=== PATIENT | male | born 1970 | race African-American/Black ===

== ENCOUNTER 2023-11-24 17:24 | Emergency (ER) | payer OTHER, SELFPAY ==
[2023-11-24] VITALS (16 sets, daily range): BP systolic 132–176; BP diastolic 72–100; PULSE 80–112; RESP 14–29; TEMP 36.3; O2SAT 93–100
--- NOTE | ~2023-11-24 | XR_ITS ---
EXAMINATION: XR chest 2V Exam Date/Time: 11/24/2023 18:10 CDT HISTORY: dizziness, body aches Comparison: None. RESULT: Lines, tubes, and devices: None. Lungs and pleura: Streaky subsegmental posterior lower lung opacities best seen in the lateral view, possibly localizing to the left lower lobe. Cardiomediastinal silhouette: Stable. Other: No acute osseous or upper abdominal finding. IMPRESSION: Subsegmental left lower lobe atelectasis/consolidation. Reviewed, dictated and finalized at location K.
--- NOTE | 2023-11-24 17:59 | ECG_ITS ---
Test Date: 2023-11-24 18:02:01 Measurements Intervals [place] Rate: 99 P: 41 GA: 176 QRS: -17 QRSD: 87 T: 73 QT: 313 QTc: 402 Interpretive Statements SINUS RHYTHM DELAYED PRECORDIAL R/S TRANSITION LEFT VENTRICULAR HYPERTROPHY WITH ST-T CHANGE BASELINE ARTIFACT- I, II, AVR, AVL BORDERLINE ECG No previous ECG available for comparison Electronically Signed On 11-24-2023 20:29:45 CDT by Al Delgadillo D.O.
[2023-11-24 18:15] LABS: Basophils Percent Auto 0.3 % (0.2-1.2); Eosinophils Absolute Auto 0.1 K/mm3 (0-0.3); Eosinophils Percent Auto 0.5 % (0-4.4); Hematocrit 42.1 % (42.0-52.0); Hemoglobin 13.9 g/dL (14.0-18.0); Immature Granulocyte Absolute 0.03 K/mm3 (0.00-0.031); Immature Granulocyte Percent A 0.3 % (0-0.5); Lymphocytes Absolute Auto 1.36 K/mm3 (0.9-3.2); Lymphocytes Percent Auto 14.6 % (18.3-44.2); Mean Corpuscular Hemoglobin 29.7 pg (26-34); Mean Platelet Volume 8.7 fl (7.4-10.4); Monocytes Absolute Auto 0.6 K/mm3 (0.1-0.6); Monocytes Percent Auto 6.1 % (2.6-8.5); Neutrophils Absolute Auto 7.3 K/mm3 (1.3-6.7); Neutrophils Percent Auto 78.2 % (45.5-73.1); Platelet Count Result 257 k/mm3 (150-375); Red Blood Count 4.68 M/mm3 (4.6-6.20); Red Cell Distribution Width 13.2 % (11.5-14.5); White Blood Count 9.3 K/mm3 (4.5-10.0)
[2023-11-24 18:41] LABS: Alanine Aminotransferase 30 U/L (6-50); Albumin Level 3.9 g/dL (3.5-5.1); Alkaline Phosphatase 111 U/L (38-126); Anion Gap 8 mmol/L (4-12); Aspartate Amino Transferase 39 U/L (17-59); Bilirubin,Total 0.9 mg/dL (0.2-1.3); Blood Urea Nitrogen 22 mg/dL (9-20); Calcium 9.3 mg/dL (8.4-10.2); Carbon Dioxide 26 mmol/L (22-30); Chloride 101 mmol/L (98-107); Estimated CRCL calculation 123 ml/min; Estimated Glomerular Filt Rate > 60; Glucose 93 mg/dL (65-110); Potassium 4.1 mmol/L (3.4-5.0); Sodium 135 mmol/L (137-145)
--- NOTE | 2023-11-24 18:44 | ED.DIZZY ---
HPI - Dizziness General Chief Complaint: Dizziness Stated Complaint: dizziness and generalized body aches Time Seen by Provider: 11/24/23 18:04 Source: patient Mode of arrival: ambulatory Limitations: no limitations History of Present Illness HPI Narrative: This is a 53-year-old male that presents to the emergency department for dizziness. 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 He felt as though he was getting overheated. He has been very lightheaded. Reports feeling short of breath earlier. Reports cough, myalgias. Denies chest pain, focal numbness or weakness. Related Data Allergies Allergy/AdvReac Type Severity Reaction Status Date / Time No Known Allergies Allergy Verified 11/24/23 18:06 Review of Systems Review of Systems: CONSTITUTIONAL: Denies fever CARDIOVASCULAR: Denies chest pain, or edema. RESPIRATORY: Reports dyspnea. All systems reviewed & are unremarkable except as noted in HPI and below PMFSH Past Medical History Medical History (Updated 11/24/23 @ 21:05 by Rachelle Nieto PA-C) History of gout History of hypertension Social History Social History (Updated 11/24/23 @ 18:47 by Rachelle Nieto PA-C) Smoking status: Never smoker Exam Narrative: GENERAL: Well-appearing, well-nourished, and in no acute distress. HEAD: Normocephalic, atraumatic. EYES: EOMI. ENT: Nares clear, no rhinorrhea or epistaxis. Mucous membranes moist. Oropharynx without tonsillar hypertrophy exudate or other lesions. NECK: Supple. No JVD CHEST: Clear to auscultation. No respiratory distress. No wheezes rales or rhonchi HEART: Regular rate and rhythm. No murmur heard. Normal peripheral pulses. EXTREMITIES: Normal range of motion. No edema. SKIN: Warm, dry, no rash. NEURO: No focal deficits. Alert and oriented x3. PSYCH: Normal mood and affect Course Course Emergency Course: Patient updated on his workup and agrees with plan of care Vital Signs Vital signs: Vital Signs Temperature 97.4 F L 11/24/23 17:29 Pulse Rate 112 H 11/24/23 17:29 Respiratory Rate 20 11/24/23 17:29 Blood Pressure 176/90 H 11/24/23 17:29 Pulse Oximetry 97 11/24/23 17:29 Oxygen Delivery Room Air 11/24/23 17:29 Temperature 97.4 F L 11/24/23 17:29 Pulse Rate 80 11/24/23 19:48 Respiratory Rate 14 11/24/23 19:45 Blood Pressure 152/95 H 11/24/23 18:32 Pulse Oximetry 100 11/24/23 19:30 Oxygen Delivery Room Air 11/24/23 17:29 MDM - Dizziness MDM Narrative Medical decision making narrative: patient presents to the emergency department for cough, myalgias, lightheadedness. He is afebrile and nontoxic appearing. Tachycardic upon arrival, this normalized with IV fluids. Cbc without leukocytosis. Metabolic panel some evidence of dehydration. Urine also with evidence of dehydration. Patient hydrated with a L of IV fluids in the ED. Influenza, RSV and COVID screens are negative. Chest x-ray shows possible pneumonia. Patient updated on his workup and agrees with plan of care. Will discharge on oral antibiotics for community-acquired pneumonia. He is to follow up with primary provider. He was given warnings to return to the ER Differential Diagnosis Differential diagnosis: Likely other ( Dehydration, electrolyte derangement, pneumonia, viral infection) Lab Data Attestation: I reviewed the patient's lab results. 11/24/23 18:07 11/24/23 18:07 Labs: Lab Results 11/24/23 11/24/23 11/24/23 Range/Units 18:07 18:10 18:52 WBC 9.3 (4.5-10.0) K/mm3 RBC 4.68 (4.6-6.20) M/mm3 Hgb 13.9 L (14.0-18.0) g/dL Hct 42.1 (42.0-52.0) % MCV 90.0 (80-100) fl MCH 29.7 (26-34) pg MCHC 33.0 (32-36) g/dl RDW 13.2 (11.5-14.5) % Plt Count 257 (150-375) k/mm3 MPV 8.7 (7.4-10.4) fl Immature Gran % (Auto) 0.3 (0-0.5) % Neut % (Auto) 78.2 H (45.5-73.1) % Lymph % (Auto) 14.6 L (18.3-44.2) % [place] % (Auto) 6
[2023-11-24 18:51] LABS: Influenza A QL RT-PCR Negative (Negative); Influenza B QL RT-PCR Negative (Negative); RSV RNA, RT-PCR Negative (Negative); SARS-CoV-2 RNA PCR Negative (Negative)
[2023-11-24] MEDS: SODIUM CHLORIDE 0.9% IV 1,000 ML 999 ML IV CONT (18:57)
[2023-11-24 19:00] LABS: Creatine Kinase 222 U/L (55-170)
[2023-11-24 19:02] LABS: Add Urine Microscopic? YES; Appearance Urine Clear (Clear); Bacteria Urine None Seen /hpf; Bilirubin Urine Negative (Negative); Blood Urine Negative (Negative); Color Urine Dark Yellow (Yellow); Glucose Urine UA Negative (Negative); Ketones Urine Trace mg/dL (Negative); Leukocyte Esterase Ur Negative LEU/UL (Negative); Nitrate Urine Negative (Negative); Non Pathogenic Casts 0-2; Protein Urine 1+ mg/dL (Negative); RBC Urine 0-2 /hpf (0-2); Specific Grav Ur 1.032 (1.001-1.035); Squamous Epithelial Cell Urine None Seen /hpf (Few); WBC Urine 0-5 /hpf (0-3); pH Urine 5.5 (5.0-9.0)
== END 2023-11-24 21:20 | disposition home or self-care (01) ==
PROVIDERS: Emergency Medicine; Emergency Provider Physician Assistant
DX: J18.9 Pneumonia, unspecified organism (principal); E86.0 Dehydration; Z20.822 Contact with and (suspected) exposure to COVID-19; I10 Essential (primary) hypertension; M10.9 Gout, unspecified
CPT/HCPCS: 36415; 71046; 80053; 81001; 82550; 85025; 87637; 93005; 96360; 96361; 99283; J7030

== ENCOUNTER 2024-05-20 15:39 | Emergency (ER) | payer OTHER, SELFPAY ==
--- OUTSIDE RECORDS SUMMARY | 2024-05-20 15:42 | XMS_ITS | Data Portability ---
Author Organization [facility] Roe Montalvo Address [address] [place] [address] Care Team Providers Care Nitrocellulose Maker Name Role Phone MAULIK MCCRAYR Primary Care Provider [phone] Assessment No assessment recorded. Plan of Treatment Reminders Order Date Submit Date Provider Last Modified By Organization Details Last Modified Time Details Appointments None recorded. Lab None recorded. Referral None recorded. Procedures None recorded. Surgeries None recorded. Imaging None recorded. Medication Orders omeprazole 20 mg capsule,del ayed release 2023 [facility]acy #[id number], [address] [place], [address], 4 14:01:18 Viagra 100 mg tablet 2023 [facility], [address] [place] [address], [id number], 5 16:18:34 pantoprazol e 40 mg tablet,raymond yed release 2023 [facility] #6830, [address] [place], [address], 4 14:00:55 famotidine 40 mg tablet 2023 [facility] #6830, [address] [place], [address], 4 18:45:53 acetaminoph en 300 mg-codeine 30 mg tablet 2023 024 [facility]/Pharmacy #[id number], [address] [place], [address], 13:16:42 Patient TargetsNo targets recorded. Patient Instructions Encounter Date Encounter Id Patient Instructions Last Modified By Organization Details Last Modified Time 08/06/2023 [id number] learning about h igh blood pressure [email or web address] Not available 08/06/2023 21:09:27 I will release t o to work. Do stretching exercises for your back. Limit bending and lifting if possible. Use your legs to lift. Weight loss will be helpful. Follow up with the Specialist. Take all of your medications as directed. If you have a problem with them, let us know. Keep adequate fluid intake. Keep comfortable. Spring is here. This one is a wet one so far. So this one is close to normal. Changes in the body temperature lower the immune system & can result in infection. Try to keep your body temperature the same. Follow the [facility] [place] [facility]. RETURN IN 1 MONTH. Not available 08/06/2023 21:13:50 Let us know if y ou can't do your job. 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 Report any problems with them to us. Keep adequate fluid intake. Spring is here . Do stretching exercises for your back. Limit bending and lifting if possible. Use your legs to lift. Weight loss will be helpful. It is finally warming up. Don't get behind on your fluids. This Spring is wetter than usual. Try to keep the body temperature constant. Decrease red meat. (Pork & beef). Increase vegetables & fruits. Please add exercise if you can. Get a little sunlight daily even if it's in your house. Vitamin D Deficiency is caused by our lack of sunlight. Not because of a poor diet. Let the shades up and let the sun shine in on you. Use the 5 [place]. Follow up in 1 month. [email or web address] Not available 08/18/2023 22:04:10 If you are uncomfortable with the chiropractor, then we may have to use physical therapy and that is if you can get the time from your job to do so. Think about it and let me know what you want to do. I can give you intermittent time off time for your gout. [email or web address] Not available 08/18/2023 22:03:19 10/27/2023 [id number] gastroesophageal reflux disease (GERD): care instructions [email or web address] Not available 10/27/2023 18:45:50 learning about h igh blood pressure [email or web address] Not available 10/27/2023 18:45:50 Take all of your medications as directed. If you have a problem with them, let us know. Keep adequate fluid intake. Keep comfortable. Summer is trying to leave, but it is still hot. Changes in the body temperature lower the immune system & can result in infection. Try to keep your body temperature the same. Gargle with baking soda and warm water twice a day for congestion and prevention of respiratory infections. Follow the 5 [place] [facility]. Follow up in 1 month. [email or web address] Not available 10/28/2023 00:55:50 We discuss the education of the problems, the possible causes of these problems and possible treatments that we can offer. The side effects of the medications prescribed are discussed. Support and counseling given. Our primary goal, is to help you. Let's work together to get a better outcome. I discussed the 5 [place] [facility]. [email or web address] Not available 10/28/2023 00:56:01 11/30/2023 [id number] gout: care instructions Not available 11/30/2023 22:09:41 sleep apnea: car e instructions Not available 11/30/2023 22:09:41 learning about h igh blood pressure [email or web address] Not available 11/30/2023 14:01:14 Take all of your medications as directed. If you have a problem with them, let us know. Keep adequate fluid intake. Keep comfortable. Fall is here. Be prepared for the change. Changes in the body temperature lower the immune system & can result in infection. Try to keep your body temperature the same. Gargle with baking soda and warm water twice a day for congestion and prevention of respiratory infections. Follow the 5 [place] [facility]. Follow up in 1 month. [email or web address] Not available 11/30/2023 22:10:00 We discuss the education of the problems, the possible causes of these problems and possible treatments that we can offer. The side effects of the medications prescribed are discussed. Support and counseling given. Our primary goal, is to help you. Let's work together to get a better outcome. I discussed the 5 [place] [facility]. 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 Take your medications as directed. If you have a problem with them, let me know. Keep warm. Decrease red meat. Red meat increases inflammation and pain. Increase vegetables & fruits. They decrease inflammation & pain. Keep exercising. Take one day at a time. [email or web address] Not available 04/02/2024 14:26:34 We discuss the t he problems, the possible causes of these problems and possible treatments that we can offer. The possible side effects of the medications prescribed are discussed. Support and counseling given. Our primary goal, is to help you. Let's work together to get a better outcome. We can do it together. I discussed the 5 [place] [facility]. [email or web address] Not available 04/02/2024 14:26:52 Reason for Referral None Reported. Results Created Date Observation Date Name Description Value Unit Range Abnormal Flag Note LastModifiedBy Organization Detail LastModifiedTime 01/09/20 24 01/09/2024 COLOG UARD cologuard result Cancel led - Order d not applic able Not Available [facility] (Cologuard Orders Only) [address], [place], [address], 01/09/2024 08:30:57 Result Notes None recorded. Problems Name Problem SNOMED Code Status Onset Date Resolution Date Notes Provider Name and Address Organization Details Recorded Time Obstructi ve sleep apnea syndrome 02670022 Active 2017 ---Synced [facility] Not Available [facility]! 17:47:59 Injury of back 535149995 Active 2023 Maulik Mccrary MD Attn: Accounting ,[address] [place], [address] , [facility] - [facility] 4 13:40:16 Body mass index 40+ - severely obese 739782225 Active 2023 Maulik Mccrary MD Attn: Accounting ,[address] [place], [address] , [place] [facility] 4 13:40:23 Neck sprain 559470396 Active 2023 Maulik Mccrary MD Attn: Accounting ,[address] [place], [address] , [place] [facility] 4 13:40:28 Injury of head 05169157 Active 2023 Maulik Mccrary MD Attn: Accounting ,[address] [place], [address] , [place] [facility] 4 13:40:32 Posttraum atic headache 05019519 Active 2023 Maulik Mccrary MD Attn: Accounting ,[address] [place], [address] , [place] [facility] 06/11/202 4 13:15:03 Low back strain 275379753 Active 2023 Maulik Mccrary MD Attn: Accounting ,[address] , [place], [address] , [facility] - [facility] 4 13:15:45 Essential hypertens ion 50793682 Active 2014 ---[facility]ced [facility] Not Available [facility]! 4 17:47:59 Obesity 370849671 Active 2014 ---[facility]ced with [facility] Not Available [facility] 4 17:48:00 Osteoarth ritis 785430666 Active 2014 ---[facility]ced with [facility] Not Available [facility]! 4 17:47:58 Hyperchol esterolem ia 47431966 Active 2014 ---[facility]ced [facility] Not Available [facility] 4 17:48:01 Gout 79342623 Active 2014 ---[facility]ced [facility] Not Available [facility] 4 17:48:00 Sinusitis 31608432 Active 2015 ---[facility]ced with [facility] Not Available [facility]! 4 17:47:58 Problem Notes None recorded. Medical Equipment None Reported. Allergies No known drug allergies Medications Name Sig Start Date Stop Date Status Note LastModified by Organization Details LastModified Time Prescriptio n - Prior Authorizati on Request 01/31 completed Not Available Not Available Not Available cyclobenzap rine 10 mg tablet TAKE 1 TABLET BY MOUTH 3 TIMES A DAY NEEDED active Not Available Not Available No t Available azithromyci n 250 mg tablet TAKE 2 TABLETS BY MOUTH TODAY, THEN TAKE 1 TABLET DAILY FOR 4 DAYS DIRECTED active Not Available Not Available No t Available pravastatin 40 mg tablet TAKE 1 TABLET BY MOUTH EVERY DAY 2024 active Not Available Not Available Not Avai lable benzonatate 200 mg capsule TAKE 1 CAPSULE BY MOUTH 3 TIMES A DAY active Not Available Not Available No t Available promethazin e 6.25 mg/5 mL oral syrup Take 10 mL( 2 teaspoonf ul) by mouth every 6 hours as needed 01/31 completed Not Available Not Available Not Available famotidine 40 mg tablet Take 1 tablet every day by oral route. active Not Available Not Available No t Available prednisone 20 mg tablet Take 1 tablet twice a day by oral route. 2021 active Not Available Not Available Not Avai lable acetaminoph en 300 mg-codeine 30 mg tablet TAKE 1 TABLET BY MOUTH EVERY 6 HOURS active Not Available Not Available No t Available amlodipine 5 mg tablet TAKE 1 TABLET BY MOUTH EVERY DAY 2023 active Not Available Not Available Not Avai lable sildenafil 100 mg tablet -TAKE 1 TABLET BY MOUTH 30-60 MINUTES PRIOR TO SEXUAL ACTIVITY. DO NOT TAKE MORE THAN 1 TABLET IN ANY 24-HOUR PERIOD- active Not Available Not Available No t Available amoxicillin 500 mg tablet TAKE 2 TABLETS (1000 MG) ORALLY EVERY 8 HOURS FOR 5 DAYS active Not Available Not Available No t Available amoxicillin 875 mg tablet TAKE 1 TABLET BY MOUTH EVERY 12 HOURS active Not Available Not Available No t Available meclizine 25 mg tablet Take one tablet twice a day as needed for dizziness 2022 active Not Available Not Available Not Avai lable benzonatate 100 mg capsule TAKE 1 CAPSULE BY MOUTH EVERY 8 HOURS NEEDED 12/21 completed Not Available Not Available Not Available pantoprazol e 40 mg tablet,raymond yed release 11/29 completed Not Available Not Available Not Available buspirone 10 mg tablet TAKE 1 TABLET BY MOUTH TWICE A DAY active Not Available Not Available No t Available polymyxin B sulfate 10,000 unit-trimet hoprim 1 mg/mL eye drops 08/14 completed Not Available Not Available Not Available telmisartan 80 mg-hydrochl orothiazide 12.5 mg tablet TAKE 1 TABLET BY MOUTH EVERY DAY active Not Available Not Available No t Available omeprazole 20 mg capsule,del ayed release TAKE 1 CAPSULE BY MOUTH EVERY DAY FOR REFLUX active Not Available Not Available No t Available allopurinol 300 mg tablet TAKE 1 TABLET BY MOUTH EVERY DAY 2024 active Not Available Not Available Not Avai lable ergocalcife rol (vitamin D2) 1,250 mcg (50,000 unit) capsule One capsule every week for a low vitamin D active Not Available Not Available No t Available ibuprofen 600 mg tablet TAKE 1 TABLET BY MOUTH 3 TIMES A DAY WITH FOOD NEEDED FOR PAIN 2024 active Not Available Not Available Not Avai lable albuterol sulfate HFA 90 mcg/actuati on aerosol inhaler TAKE 2 PUFFS BY MOUTH EVERY 4 HOURS NEEDED active Not Available Not Available No t Available Naprosyn 500 mg tablet Take 1 tablet twice a day by oral route. 10/08 completed Not Available Not Available Not Available fluticasone propionate 50 mcg/actuati on nasal spray,suspe nsion SPRAY 2 SPRAYS INTO EACH NOSTRIL EVERY DAY 2021 active Not Available Not Available Not Avai lable loratadine 10 mg tablet TAKE 1 TABLET BY MOUTH EVERY DAY FOR ALLERGIES 2021 active Not Available Not Available Not Avai lable amoxicillin 875 mg-potassiu m clavulanate 125 mg tablet TAKE 1 TABLET BY MOUTH TWICE A DAY FOR 7 DAYS active Not Available Not Available No t Available azithromyci n 500 mg tablet TAKE 1 TABLET BY MOUTH EVERY DAY FOR 3 DAYS active Not Available Not Available No t Available moxifloxaci n 0.5 % eye drops 08/14 completed Not Available Not Available Not Available losartan 100 mg-hydrochl orothiazide 12.5 mg tablet TAKE 1 TABLET BY MOUTH EVERY DAY 01/31 completed Not Available Not Available Not Available Vitals Date Recorded Body height Body mass index (BMI) Body weight Heart rate Systolic blood pressure Diastolic blood pressure Provider Name and Address Organization Details Last Updated DateTime 4 180.34 cm 50.5 kg/m2 569426. 44 g 60 /min 144 mm[Hg] 83 mm[Hg] JOSSUE Rodriguez - [facility] 4 14:17:41 Date Recorded Body height Body mass index (BMI) Body weight Heart rate Respiratory rate Systolic blood pressure Diastolic blood pressure Provider Name and Address Organization Details Last Updated DateTime 4 180.34 cm 50.8 kg/m2 279776. 42 g 79 /min 18 /min 119 mm[Hg] 80 mm[Hg] Cyndy Dhaliwal [place] - [facility] 4 11:41:21 Date Recorded Body height Body mass index (BMI) Body weight Systolic blood pressure Diastolic blood pressure Provider Name and Address Organization Details Last Updated DateTime 10/27/2023 180.34 cm 50.8 kg/m2 901022.6 2 g 119 mm[Hg] 80 mm[Hg] Cyndy Dhaliwal MA [facility] 4 15:19:17 Date Recorded Body height Body mass index (BMI) Body weight Heart rate Systolic blood pressure Diastolic blood pressure Provider Name and Address Organization Details Last Updated DateTime 180.34 cm 48.5 kg/m2 054486. 74 g 77 /min 124 mm[Hg] 73 mm[Hg] Cyndy Dhaliwal MA [facility] 4 11:50:53 Date Recorded Body height Provider Name an d Address Organization Details Last Updated DateTime 04/01/2024 180.34 cm Cyndy Dhaliwal MA [facility] 04/01/19 25 10:08:50 Social History Question Answer Notes LastModified by Organizat ion Details LastModified Time Tobacco Smoking Status Never Smoker Rhona Headley LPN [facility], [facility] 12/21/2020 15:13:04 What Is Your Level Of Alcohol Consumption? None Information not available 01/09/2023 What Is Your Level Of Caffeine Consumption? None Information not available 01/09/2023 What Was The Date Of Your Most Recent Tobacco Screening? 04/01/2024 Information not available 04/01/2024 Do You Use Any Illicit Or Recreational Drugs? No Information not available 01/09/2023 Has Tobacco Cessation Counseling Been Provided? No Information not available 12/23/2021 Do You Or Have You Ever Used Any Other Forms Of Tobacco Or Nicotine? No Information not available 01/09/2023 Sex: Unknown Functional Status None recorded. Mental Status None recorded. Family History Relationship Description Onset Age of this Age Resolved Age Notes LastModified by Organization Details LastModified Time Mother Hypertensive disorder [email or web address] Not available 2020 15:19:39 Mother Cerebrovascu lar accident [email or web address] Not available 15:19:57 Medical History Condition Response Diabetes N Obesity Y Seizures/Epilepsy N High Cholesterol Y Liver Disease N Heart Disease N Stroke N Hypertension Y Pneumonia N Kidney Disease N Immunizations Vaccine Type Date Status Note Provider Nam e and Address Organization Details Recorded Time COVID-19, mRNA, LNP-S, PF, 30 mcg/0.3 mL dose 1 completed Maulik Mccrary MD Attn: Accounting[address] [place], [address], [place] [facility] 10/14/2020 15:55:51 COVID-19, mRNA, LNP-S, PF, 30 mcg/0.3 mL dose 1 completed Maulik Mccrary MD Attn: Accounting[address] [place], [address], [place] [facility] 11/04/2020 16:38:05 Influenza, split virus, quadrivalent, preservative 9 completed Not Available [facility] 03/26/2019 02:47:21 influenza, intradermal, quadrivalent, preservative free 6 completed Not Available [facility] 04/09/2019 02:11:36 Influenza, split virus, quadrivalent, PF 2 completed Cyndy Dhaliwal [place] null, [place] [facility] 12/23/2021 17:55:37 Influenza, split virus, quadrivalent, preservative 3 completed Maulik Mccrary MD Attn: Accounting[address] [place], [address], [place] [facility] 01/10/2023 14:25:20 Past Encounters Encounter ID Performer Location Encounter Start Date Encounter Closed Date Diagnosis/Indication Diagnosis SNOMED-CT Code Diagnosis ICD10 Code Diagnosis Note [id number] [facility] (Adult Med) [address] [place] [address] 12/18/2014 10:42:58 12/18/2014 13:19:03 Essential hypertension 56913883 I10 Obesity 881963929 E66.9 Osteoarthritis 812286623 M19.90 Hypercholesterolemia 136 70447 E78.0 Gout 42935903 M10.9 [id number] Maulik Mccrary MD [facility] (Adult Med) [address] [place] [address] 12/14/2015 14:12:19 12/14/2015 16:11:58 Essential hypertension 93471178 I10 Gout 09208321 M10.9 Hypercholesterolemia 136 38692 E78.0 Obesity 538520509 E66.9 Osteoarthritis 683824055 M19.90 Sinusitis 31466189 J32.9 Adult heal th examination 550615106 Z00.00 [id number] Maulik Mccrary MD [facility] (Adult Med) [address] [place] [address] 06/13/2016 13:58:21 06/13/2016 16:55:02 Shoulder pain 66982080 M25.511 Hypercholesterolemia 136 63440 E78.2 Obesity 725607187 E66.9 Essential hypertension 45557416 I10 Obstructiv e sleep apnea syndrome 07574258 G47.33 Adult heal th examination 120059049 Z00.00 Primary er ectile dysfunction 179977779 N52.9 [id number] Maulik Mccrary MD [facility] (Adult Med) [address] [place] [address] 04/10/2017 14:50:12 04/10/2017 16:36:04 Essential hypertension 83579296 I10 Gout 36961060 M10.9 Hyperlipidemia 19918457 E78.5 Obstructiv e sleep apnea syndrome 91677421 G47.33 Obesity 156198096 E66.9 Osteoarthritis 253373235 M19.90 Hypercholesterolemia 136 37475 E78.2 [id number] Maulik Mccrary MD [facility] (Adult Med) [address] [place] [address] 10/08/2017 10:03:08 10/08/2017 13:00:38 Obstructive sleep apnea syndrome 29076958 G47.33 Gout 14488831 M10.9 Essential hypertension 80289328 I10 Shoulder pain 78723297 M 25.511 Osteoarthritis 796527721 M19.90 Hypercholesterolemia 136 95107 E78.2 Obesity 526467258 E66.9 [id number] Maulik Mccrary MD [facility] (Adult Med) [address] [place] [address] 04/09/2018 15:09:41 04/12/2018 08:06:58 Obstructive sleep apnea syndrome 00461386 G47.33 Gout 93549430 M10.9 Essential hypertension 68503845 I10 Shoulder pain 98899768 M 25.713 [id number] Xu Longo MD [facility] [address] [place] [address] 07/02/2018 11:32:23 07/02/2018 17:07:00 Obstructive sleep apnea syndrome 23564540 G47.33 Sleep studyDiscu ssed sleep hygienebe as active as able Essential hypertension 82719669 I10 continue same meds Morbid obesity 657134559 E66.01 encouraged to loose wt [id number] Maulik Mccrary MD [facility] (Adult Med) [address] [place] [address] 01/31/2019 16:27:54 02/01/2019 12:36:36 Essential hypertension 87214936 I10 Hypercholesterolemia 136 34320 E78.2 Obstructiv e sleep apnea syndrome 37846472 G47.33 Osteoarthritis 305022621 M19.90 Sinusitis 96305364 J32.9 Gout 90202157 M10.9 Secondary erectile dysfunction 129619464 N52.8 Administra tion of influenza vaccine 94873236 Z23 [id number] Maulik Mccrary MD [facility] (Adult Med) [address] [place] [address] 08/15/2019 09:22:48 08/15/2019 16:01:17 Gout 09266867 M10.9 Hypercholesterolemia 136 98927 E78.2 Essential hypertension 98704176 I10 Obstructiv e sleep apnea syndrome 59734396 G47.33 Secondary erectile dysfunction 653118372 N52.8 Abnormal t aste in mouth 538493449 R43.2 [id number] Maulik Mccrary MD [facility] (Adult Med) [address] [place] [address] 03/13/2020 16:23:27 03/18/2020 13:19:23 [id number] Maulik Mccrary MD [facility] (Adult Med) [address] [place] [address] 03/27/2020 15:10:41 04/05/2020 03:47:51 [id number] Maulik Mccrary MD [facility] (Adult Med) [address] [place] [address] 04/10/2020 11:08:22 04/11/2020 11:24:37 Obstructive sleep apnea syndrome 63754959 G47.33 Obesity 707280277 E66.9 Osteoarthritis 086668482 M19.90 Hypercholesterolemia 136 95157 E78.2 Essential hypertension 49365533 I10 Otitis media 35129462 H6 6.93 Gout 24608463 M10.9 [id number] Maulik Mccrary MD [facility] (Adult Med) [address] [place] [address] 11/02/2020 10:25:27 11/04/2020 20:34:56 Secondary erectile dysfunction 433161104 N52.8 Obstructiv e sleep apnea syndrome 12785067 G47.33 Essential hypertension 14216331 I10 Hypercholesterolemia 136 27480 E78.2 Obesity 280887771 E66.9 Osteoarthritis 031868975 M19.90 [id number] Gloria Galvez [facility] [address] [place] [address] 12/21/2020 15:05:38 12/24/2020 09:10:40 Obstructive sleep apnea syndrome 69591136 G47.33 Discussed sleep hygiene Essential hypertension 58220781 I10 continue same meds Gout 99200641 M10.9 Hypercholesterolemia 136 44421 E78.2 [id number] Xu Longo MD [facility] [address] [place] [address] 03/13/2021 15:07:59 03/14/2021 08:21:05 Obstructive sleep apnea syndrome 28036292 G47.33 02/13/21: split night sleep study : AHI 32.5/hr, lowest O2 68%. titrated to 14cm with optimal sleep and respiratio n normalizat ionWill order Cpap through [facility]. Encouraged to use cpap every night. Instructed pt to contact DME for any issues with mask fit, comfort, or machine related issue. F/U in 3 months to assess compliance and efficacy. Informed of nation wide cpap shortage, could be a wait. Pt verbalized understand ingSleep hygiene discussed Essential hypertension 83976931 I10 Managed by PCP Morbid obesity 308876972 E66.01 BMI 50.9 on 12/21/20 [id number] Maulik Mccrary MD [facility] (Adult Med) [address] [place] [address] 04/19/2021 14:06:56 04/20/2021 11:46:30 Pain in right arm 263692355 M79.601 Pain of ri ght shoulder joint 8036099775 4900102 M25.511 Essential hypertension 99683174 I10 Gastroesop hageal reflux disease 636250696 K21.9 Obstructiv e sleep apnea syndrome 24403375 G47.33 Osteoarthritis 135404813 M19.90 Gout 56503581 M10.9 Secondary erectile dysfunction 980573771 N52.8 Morbid obesity 050877543 E66.01 [id number] Maulik Mccrary MD [facility] (Adult Med) [address] [place] [address] 12/23/2021 16:08:16 12/31/2021 10:10:45 Essential hypertension 41755417 I10 Obesity 820072822 E66.9 Serous otitis media 8032 7007 H65.03 Administra tion of influenza vaccine 75570714 Z23 Hyperlipidemia 74518408 E78.5 Gout 03107261 M10.9 Vitamin D deficiency 347 08052 E55.9 Allergic rhinitis 992771 04 J30.9 [id number] Maulik Mccrary MD [facility] (Adult Med) [address] [place] [address] 03/25/2022 09:42:10 03/26/2022 12:31:04 Anxiety 13901539 F41.9 Essential hypertension 76392121 I10 Gout 98820970 M10.9 Obesity 063547517 E66.9 Obstructiv e sleep apnea syndrome 31496164 G47.33 [id number] Maulik Mccrary MD [facility] (Adult Med) [address] [place] [address] 09/23/2022 14:39:22 09/24/2022 16:18:31 Vertigo 564787516 R42 Reactive a irway disease 2336781742 06 J45.909 Essential hypertension 96063543 I10 Hypercholesterolemia 136 40582 E78.2 Obstructiv e sleep apnea syndrome 24663576 G47.33 Osteoarthritis 920774561 M19.90 [id number] Maulik Mccrary MD [facility] (Adult Med) [address] [place] [address] 01/09/2023 15:53:06 01/13/2023 09:24:03 Essential hypertension 92482511 I10 counselled . Morbid obesity 173417180 E66.01 counselled . Screening for malignant neoplasm of colon 621158346 Z12.11 counselled . Secondary erectile dysfunction 614764316 N52.8 Hyperlipidemia 60258504 E78.5 Gastroesop hageal reflux disease 645236585 K21.9 Anxiety 95787950 F41.9 Gout 45253603 M10.9 Reactive a irway disease 6359934271 06 J45.909 Allergic rhinitis 297686 04 J30.9 Pharyngitis 940315620 J0 2.9 Administra tion of influenza vaccine 20312226 Z23 counselled . [id number] Maulik Mccrary MD [facility] (Adult Med) [address] [place] [address] 05/08/2023 15:54:03 05/11/2023 13:05:29 Morbid obesity 015321086 E66.01 counselled . Essential hypertension 18177080 I10 counselled . Hyperlipidemia 30662335 E78.5 Gout 50828695 M10.9 Gastroesop hageal reflux disease 604920989 K21.9 Reactive a irway disease 4928064917 06 J45.909 Vitamin D deficiency 347 02541 E55.9 Obstructiv e sleep apnea syndrome 11761200 G47.33 [id number] Maulik Mccrary MD [facility] (Adult Med) [address] [place] [address] 07/24/2023 16:20:44 07/27/2023 10:39:39 Essential hypertension 70400731 I10 counselled . Body mass index 40+ - severely obese 453902346 Z68.43 Injury of head 92562171 S09.90XA Neck sprain 168323294 S1 3.9XXA Injury of back 181347965 S39.92XA [id number] Maulik Mccrary MD [facility] (Adult Med) [address] [place] [address] 08/06/2023 14:10:46 08/07/2023 11:09:51 Essential hypertension 64022715 I10 counselled . Injury of head 46689757 S09.90XA Improved. Strain of neck muscle 36 6939529 S16.1XXD Improved Low back strain 30454096 1 S39.012D Improved. [id number] Maulik Mccrary MD [facility] (Adult Med) [address] [place] [address] 08/18/2023 11:00:10 08/19/2023 11:14:43 Essential hypertension 63965300 I10 counselled . Body mass index 40+ - severely obese 255201040 Z68.43 bmi: 50.8 Posttrauma tic headache 24565964 G44.309 Neck sprain 100060127 S1 3.9XXA Low back strain 70364326 1 S39.012D [id number] Maulik Mccrary MD [facility] (Adult Med) [address] [place] [address] 10/27/2023 13:50:40 10/29/2023 12:11:33 Essential hypertension 37813269 I10 counselled . Gastroesop hageal reflux disease 197514056 K21.9 Secondary erectile dysfunction 806786129 N52.8 [id number] Maulik Mccrary MD [facility] (Adult Med) [address] [place] [address] 11/30/2023 11:44:05 12/01/2023 12:07:41 Essential hypertension 75887822 I10 counselled . Gastroesop hageal reflux disease 087406295 K21.9 Gout 30251181 M10.9 Hypercholesterolemia 136 43723 E78.2 Injury of back 932683786 S39.92XA Low back strain 85253285 1 S39.012D Obstructiv e sleep apnea syndrome 21448002 G47.33 Osteoarthritis 637369133 M19.90 [id number] Maulik Mccrary MD [facility] (Adult Med) [address] [place] [address] 04/01/2024 09:50:06 04/04/2024 09:47:02 Essential hypertension 90433486 I10 counselled . Gout 70935708 M10.9 Hypercholesterolemia 136 39226 E78.2 Injury of head 41234052 S09.90XA Improved. Neck sprain 538865632 S1 3.9XXA Obstructiv e sleep apnea syndrome 60743406 G47.33 Low back strain 63111635 1 S39.012D Osteoarthritis 873852766 M19.90 Posttrauma tic headache 99004463 G44.309 Health Concerns Section Related Observation LastModified by Organization Detai ls LastModified Time None Recorded Concern Status LastModified by Organization Details LastModified Time None Recorded Advance Directives Directive None Recorded Payers Encounter Date Sequence Insurance Name Policy Number Policy Brooks Covered Member ID Brooks Member ID Guarantor Name 08/06/2023 1 [employer] (PPO) [id number] Gonzalo Hernandez [id number] Gonzalo Hernandez 08/18/2023 1 [employer] (PPO) [id number] Gonzalo Hernandez [id number] Gonzalo Hernandez 10/27/2023 1 [employer] (PPO) [id number] Gonzalo Hernandez [id number] Gonzalo Hernandez 11/30/2023 1 [employer] (PPO) [id number] Gonzalo Hernandez [id number] Gonzalo Hernandez 04/01/2024 1 [employer]NAG[employer] (PPO) [id number] Gonzalo [facility] [id number] Gonzalo [facility] Notes Date Note Type Note Provider Name and Address Organization Details Recorded Time 08/06/2023 text/html Follow up. He thinks he's better. He still gets some headaches and has neck pain. He can sleep better now and get comfortable sitting for a while. He thinks he wants to get back to work. He brought more paper work. Maulik Mccrary MD Attn: Accounting,[address] [facility], [place], [address], [place] [facility] 08/06/2023 21:14:10 08/18/2023 text/html Follow up in the office. The patient states that he is having a lot of pain. It hurts him while he's at work. He wants to know if he can get some intermittent time off to deal with it. He asked for pain pills to help him with the pain. His returner has recommended that he see a chiropractor but he did not want to do that. He says that he still has headaches, neck pain and some lower back pain. He notices that he hurts more when he works. He does not want to lose his job. There is no light duty at work. Maulik Mccrary MD Attn: Accounting, [address] [place], [address], [facility] 08/18/2023 22:04:30 10/27/2023 text/html The patient was at the office but had to leave. He is conducting a phone visit. He says he's doing it as a follow up on his injury. He still has some neck and head pain and has had to physical therapy. He's now waiting. He stop using the chiropractor. He is trying to settle the case now. He is asking about the FMLA. This job is saying something about the question number six. Maulik Mccrary MD Attn: Accounting, [address] [place], [address], [facility] 10/28/2023 00:56:20 11/30/2023 text/html The patient come s in the office today for follow up from the emergency room for pneumonia. He states that he was working and felt really cold and weak. He started sweating a lot. When he went to the emergency room they diagnosed him with pneumonia. They treated him with Zithromax. He is getting better now. His job has sent him the usual FMLA to be done. Maulik Mccrary MD Attn: Accounting, [address] [place], [address], [facility] 11/30/2023 22:10:27 04/01/2024 text/html Phone visit. The patient calls in to get his FMLA done for this year. He says that he had problems getting it because someone told him that there was not one for this year. There does seem to be some confusion about getting the FMLA and the timing. Because the FMLA was done in February of 2024, he believed that he needed to get one done in this year. He does say that he continues to get neck pain depending on what he does. He gets some mild headaches as well. He believed that he has lost some weight. Maulik Mccrary MD Attn: Accounting[address] [place], [address], [facility] 04/02/2024 14:27:12
--- OUTSIDE RECORDS SUMMARY | 2024-05-20 15:42 | XMS_ITS | Clinical Summary ---
Author Organization [facility] [place] Address [facility] [place] [address] Care Team Providers Care Clinical Business Manager Name Role Phone Maulik Jacobo MD Primary Care Provider [phone] Allergies No known active allergies Medications allopurinol (ZYLOPRIM) 300 mg tablet TAKE 1 TABLET BY MOUTH EVERY DAY 10 8 Active amLODIPine (NORVASC) 5 mg tablet Take 5 mg by mouth daily. 11 8 Active losartan-hydroCH LOROthiazide (HYZAAR) 100-12.5 mg tablet Take 1 Tablet by mouth daily. 11 8 Active pravastatin (PRAVACHOL) 40 mg tablet Take 40 mg by mouth daily. 11 8 Active sildenafiL (Viagra) 100 mg tabletIndication s:Erectile dysfunction, unspecified erectile dysfunction type Take 1 Tablet (100 mg) by mouth 1 time daily as needed for Erectile Dysfunction. 10 Tablet 4 0 Active esomeprazole (NexIUM) 40 mg Capsule, Delayed Release(E.C.)Ind ications:Gastroe sophageal reflux disease without esophagitis Take 1 Capsule (40 mg) by mouth daily before breakfast. 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 burks 03/16/2018 Obstructive sleep apnea syndrome 04/10/2017 Encounters Date Type Department Care Team Description 05/18/2024 External Device Data [facility] Provider, Abstract 05/17/2024 External Device Data [facility] Provider, Abstract 05/14/2024 External Device Data [facility] Provider, Abstract 05/14/2024 External Device Data [facility] Provider, Abstract 05/03/2024 External Device Data [facility] Provider, Abstract 03/31/2024 External Device Data [facility] Provider, Abstract from Last 3 Months Immunizations Immunization Administration Dates Next Due (Doorbot)(12 YR UP) COVID-19 VACCINE - EMERGENCY USE AUTHORIZATION, MRNA, [id number](PF) 30 MCG/0.3 ML IM SUSP 10/27/2020,10/06/2020 INFLUENZA VACCINE QUADRIVALENT 6 MOS UP IM 01/31 Influenza Vaccine Quad Split (18-64) Pf Id 12/13 Family History Medical History Relation Name Comments No Known Problems Daughter 1 No Known Problems Daughter 2 No Known Problems Daughter 3 No Known Problems Daughter 4 Sudden Father Unknown Maternal Grandfather Unknown Maternal Grandmother Diabetes Mother Hypertension Mother Unknown Paternal Grandfather Unknown Paternal Grandmother No Known Problems Son Relation Name Status Comments Daughter 1 Alive Daughter 2 Alive Daughter 3 Alive Daughter 4 Alive Father Maternal Grandfather Maternal Grandmother Mother Alive Paternal Grandfather Paternal Grandmother Son Alive Social History Tobacco Use Types Packs/Day Years Used Date Smoking Tobacco: Never Smokeless Tobacco: Never Alcohol Use Standard Drinks/Week Comments No 0 (1 standard drink = 0.6 oz pur e alcohol) Sex and Gender Information Value Date Recorded Sex Assigned at Not on file Legal Sex Male 12:12 AM CDT Gender Identity Not on file Sexual Orientation Not on file Last Filed Vital Signs Vital Sign Reading Time Taken Comments Blood Pressure 130/90 10/01/2023 7:42 AM CDT Pulse 73 10/25/2021 2:35 PM CDT Temperature 36.7 C (98 F) 10/25/2021 2:35 PM CDT Respiratory Rate 18 10/25/2021 2:35 PM CDT Oxygen Saturation 96% 10/25/2021 2:35 PM CDT Inhaled Oxygen Concentration - - Weight 164.2 kg (362 lb) 10/01/2023 7:42 AM CDT Height 188 cm (6' 2 ) 10/01/2023 7:42 AM CDT Body Mass Index 46.48 10/01/2023 7:42 AM CDT Plan of Treatment Health Maintenance Due Date Last Done Comments Pre-Diabetes and Diabetes Screening 1970 PNEUMOCOCCAL VACCINE 0-49 YE ARS (1 of 2 - PCV) 01/19/1978 DTAP/TDAP/TD VACCINES (1 - Tdap) 01/19/1991 HEPATITIS B VACCINES (1 of 3 - 19+ 3-dose series) 01/19/1991 COLORECTAL SCREENING 01/19/2017 Colorectal Cancer Screening 01/19/2017 FIT-DNA Q 3 years 01/19/2017 FIT/FOBT Q 1 year 01/19/2017 Flex Sig/CT Colonography Q 5 years 01/19/2017 ZOSTER VACCINE (1 of 2) 01/19/2022 INFLUENZA VACCINE (#1) 2023 , 12/23/2021, 01/31/2019, Additional history exists COVID-19 Vaccine (3 - 2023-2 5 season) 2023 10/27/2020, 10/06/2020 Insurance ALLEGIANCE ALLEGIANCE * Guarantor: BELL ROSEN[employer] Account Type Relation to Patient Date of Phone Billing Address Corporate Employer ATTN: YOBANY ALBRECHT [address] [address] Care Teams Clinical Business Manager Relationship Specialty Start Date End Date Maulik Jacobo MD [address] [place] [address] PCP - General Family Practice 10/07/23
--- OUTSIDE RECORDS SUMMARY | 2024-05-20 15:42 | XMS_ITS | CONTINUITY OF CARE DOCUMENT ---
Author Name stacie quinones Address Unknown Organization [facility] Address [address] [facility] [address] [place] [address] Phone [phone] Care Team Providers Care Ritual Circumciser Name Role Phone Madelin Rajput MD Unavailable [phone] Madelin Rajput MD Unavailable [phone] INSURANCE PROVIDERS Payer name Policy type / Coverage type [place] red green party ID [id number] Commercial insurance co duane [facility] [employer] insurance [employer] [id number]
--- OUTSIDE RECORDS SUMMARY | 2024-05-20 15:42 | XMS_ITS | Clinical Summary ---
Author Organization [facility] Address [facility] [place] [address] Care Team Providers Care Hematology Technician Name Role Phone Unavailable Primary Care Provider Unavailabl e Allergies No known active allergies Medications allopurinol (ZYLOPRIM) 300 MG tablet Take 1 tablet (300 mg total) by mouth daily. 07/09/2023 Active amLODIPine (NORVASC) 5 MG tablet Take 1 tablet (5 mg total) by mouth daily. 05/14/2023 Active ibuprofen (MOTRIN) 600 MG tablet 1 tablet (600 mg total) every 8 (eight) hours as needed for Pain. 07/15/2023 Active omeprazole (PRILOSEC) 20 MG capsule Take 1 capsule (20 mg total) by mouth daily. 05/15/2023 Active pravastatin (PRAVACHOL) 40 MG tablet Take 1 tablet (40 mg total) by mouth daily. 07/08/2023 Active VIAGRA 100 MG tablet Take 1 tablet (100 mg total) by mouth as needed for Erectile Dysfunction. 07/09/2023 Active Telmisartan-HCT Z 80-12.5 MG Tab Take 1 tablet by mouth daily. 07/15/2023 Active cyclobenzaprine (FLEXERIL) 10 MG tablet Take 1 tablet (10 mg total) by mouth 3 (three) times daily as needed. 20 tablet 07/18/2023 Active Social History Tobacco Use Types Packs/Day Years Used Date Smoking Tobacco: Never Assessed Sex and Gender Information Value Date Recorded Sex Assigned at Not on file Legal Sex Male 7:11 PM CDT Gender Identity Not on file Sexual Orientation Not on file Last Filed Vital Signs Vital Sign Reading Time Taken Comments Blood Pressure 137/95 07/18/2023 3:24 AM CDT Pulse 69 07/18/2023 3:24 AM CDT Temperature 37.1 C (98.7 F) 07/17/2023 10:43 PM CDT Respiratory Rate 19 07/18/2023 3:24 AM CDT Oxygen Saturation 95% 07/18/2023 3:24 AM CDT Inhaled Oxygen Concentration - - Weight 159.1 kg (350 lb 12 oz) 07/17/2023 10:43 PM CDT Height 185.4 cm (6' 1 ) 07/17/2023 10:43 PM CDT Body Mass Index 46.28 07/17/2023 10:43 PM CDT Plan of Treatment Health Maintenance Due Date Last Done Comments Colorectal Cancer Screening Colonoscopy (10 Years) 1972 Annual Physical 01/19/1975 DTaP, Tdap and Td Vaccines (2 - Tdap) 11/14/1989 11/13/1989 Hepatitis C 01/19/1990 Hepatitis B Vaccines (1 of 3 - 19+ 3-dose series) 01/19/1991 Zoster Vaccines (1 of 2) 01/19/2022 COVID-19 Vaccine ( - 2023- season) 2023 10/27/2020, 10/06/2020 Influenza Adult (#1) 2023 01/09/2023, 12/23/2021, 01/31/2019, Additional history exists Meningococcal B Vaccine Aged Out No l onger eligible based on patient's age to complete this topic Meningococcal Vaccine Aged Out No adi grace eligible based on patient's age to complete this topic Pneumococcal Vaccine: Pediatrics (0 to 5 Years) and At-Risk Patients (6 to 64 Years) Aged Out No longer eligible based on patient's age to complete this topic RSV Immunizations Under 20 Months Aged Out No longer eligible based on patient's age to complete this topic Insurance [facility]
--- OUTSIDE RECORDS SUMMARY | 2024-05-20 15:42 | XMS_ITS | Encounter Summary ---
Author Organization [facility] Address [address] [place] [address] Care Team Providers Care Bevel Polisher Name Role Phone Maulik Jacobo MD Primary Care Provider [phone] Encounter Details Date Type Department Care Team (Late st Contact Info) Description 05/18/2024 External Device Data [facility] Provider, Abstract NO ADDRESS ON FILE Social History Tobacco Use Types Packs/Day Years Used Date Smoking Tobacco: Never Smokeless Tobacco: Never Alcohol Use Standard Drinks/Week Comments No 0 (1 standard drink = 0.6 oz pur e alcohol) Sex and Gender Information Value Date Recorded Sex Assigned at Not on file Legal Sex Male 12:12 AM CDT Gender Identity Not on file Sexual Orientation Not on file documented as of this encounter Plan of Treatment Not on file documented as of this encounter Visit Diagnoses Not on filedocumented in this encounter Care Teams Bevel Polisher Relationship Specialty Start Date End Date Maulik Jacobo MD [address] [place] [address] PCP - General Family Practice 10/07/23 documented as of this encounter
[2024-05-20 16:22] VITALS: BP 160/96; PULSE 72; RESP 16; TEMP 37.2; O2SAT 100
--- NOTE | 2024-05-20 19:55 | PC.NURSE ---
Called for room assignment, no answer.
--- OUTSIDE RECORDS SUMMARY | 2024-05-20 22:26 | XMS_ITS | Clinical Summary ---
Author Organization [facility] Address [facility] [place] [address] Care Team Providers Care Brake Repairer Air Name Role Phone Unavailable Primary Care Provider [...] topic Insurance [facility]
--- OUTSIDE RECORDS SUMMARY | 2024-05-20 22:27 | XMS_ITS | CONTINUITY OF CARE DOCUMENT ---
Author Name stacie quinones Address Unknown Organization [facility] Address [address] [facility] [address] [place] [address] Phone [phone] Care Team Providers Care Four H Club Agent Name Role Phone Madelin Rajput MD Unavailable [phone] Madelin Rajput MD Unavailable [phone] INSURANCE PROVIDERS Payer name Policy type / Coverage type [place] red democrat ID [place] [employer] Commercial insurance co duane [facility]ANCE HealthEquity insurance [employer] [id number]
--- OUTSIDE RECORDS SUMMARY | 2024-05-20 22:27 | XMS_ITS | Encounter Summary ---
Author Organization [facility] Address [address] [place] [address] Care Team Providers Care Radio Performer Name Role Phone Maulik Jacobo MD Primary Care Provider [phone] Encounter Details Date Type Department Care Team [...] on filedocumented in this encounter Care Teams Radio Performer Relationship Specialty Start Date End Date Maulik Jacobo MD [address] [place] [address] PCP - General Family Practice 10/07/23 documented as of this encounter
--- OUTSIDE RECORDS SUMMARY | 2024-05-20 22:27 | XMS_ITS | Clinical Summary ---
Author Organization [facility] [employer] [place] Address [facility] [place] [address] Care Team Providers Care Reimbursement Manager Name Role Phone Maulik Jacobo MD Primary Care Provider [phone] Allergies No known active allergies Medications allopurinol [...] Months Immunizations Immunization Administration Dates Next Due ([employer]ap[employer]umpers)(12 YR UP) COVID-19 VACCINE - EMERGENCY USE AUTHORIZATION, MRNA, [id number](PF) 30 MCG/0.3 ML IM SUSP 10/27/2020,10/06/2020 INFLUENZA [...] 10/06/2020 Insurance ALLEGIANCE ALLEGIANCE * Guarantor: BELL ROSEN[employer] Account Type Relation to Patient Date of Phone Billing Address Corporate Employer ATTN: YOBANY ALBRECHT [address] [address] Care Teams Reimbursement Manager Relationship Specialty Start Date End Date Maulik Jacobo MD [address] [place] [address] PCP - General Family Practice 10/07/23
== END 2024-05-20 22:25 | disposition left against medical advice (07) ==
LOC: ANHED 22:25
PROVIDERS: Emergency Provider Physician Assistant
DX: R05.9 Cough, unspecified (principal)
CPT/HCPCS: 99199; A4565